=== PATIENT | male | born 1965 | race Caucasian/White ===

== ENCOUNTER 2025-05-24 21:05 | Emergency (ER) | payer BC, SELFPAY ==
[2025-05-24 21:11] VITALS: BP 134/101
[2025-05-24 21:41] LABS: Hematocrit 42.7 % (39.0-52.0); Hemoglobin 15.1 g/dL (13.0-18.0); Mean Corp Hgb Conc. 35.4 g/dL (33.0-37.0); Mean Corpuscular Volume 82.0 fL (80.0-94.0); Nucleated Red Blood Cells % 0 % (-); Platelet Count 178 10^3/uL (130-400); Red Cell Dist. Width 13.5 % (11.5-14.5)
[2025-05-24 22:08] LABS: ALT (SGPT) 20 U/L (0-50); AST (SGOT) 23 U/L (17-59); Albumin 4.6 g/dl (3.5-5.0); Alkaline Phosphatase 75 U/L (38-126); Blood Urea Nitrogen 15 mg/dl (9-20); Calcium 10.0 mg/dl (8.4-10.2); Carbon Dioxide 24 mmol/L (22-30); Glucose 88 mg/dl (70-99); Lipase 164 U/L (23-300); Total Protein 7.3 g/dl (6.3-8.2); eGFR > 60.00
[2025-05-24 22:16] LABS: Chloride 106 mmol/L (98-107); Potassium 4.2 mmol/L (3.5-5.1); Sodium 138 mmol/L (135-145)
[2025-05-24 22:26] LABS: Urine Character Clear (Clear)
--- NOTE | 2025-05-24 22:27 | ED.GENMED ---
History of Present Illness
General
Chief Complaint: Abdominal Pain
Source: patient
Exam Limitations: none
Time Seen by Provider: 05/24/25 21:31
Nursing documentation reviewed up to this point in time: agreed with
History of Present Illness
History of Present Illness:
60-year-old male with history as noted presents to the ER for evaluation of groin pain. Patient reports onset of symptoms this morning while at his computer and they have been constant since that time. He reports a sharp pain in the left inguinal
crease. Pain does not radiate. Worse with certain movements. No relieving factors noted. He denies any associated trauma or injury. He denies any abdominal or flank pain. He denies any nausea, vomiting. Denies any diarrhea or constipation.
He denies any dysuria, hematuria, change in urinary frequency. He denies any scrotal pain or swelling. Denies any radicular symptoms down the legs and denies any back pain. He denies any other acute complaints.
Past History
Past History
ED Past Medical History: Other (back pain)
ED Past Surgical History: Orthopedic (Right knee, and right elbow, and left ankle surgery and microdiscectomy of the back)
Social History
Tobacco: Non-smoker
Alcohol: None
Drug: None
Personal:
Living: with family
Employment: Employed
Family History
Family History: Other
Review of Systems
Review of Systems
All Other Systems: ROS reviewed and negative except as documented in HPI and ROS
Constitutional: Denies fever
Respiratory: Denies trouble breathing
Cardiac: Denies chest pain
ABD/GI: Denies abdominal pain, nausea, vomiting, diarrhea or constipated
: Denies dysuria, frequency, flank pain or bleeding
Musculoskeletal: Reports muscle pain (Groin pain); Denies neck pain or back pain
Neurological: Denies headache
Phy Exam
Physical Exam
Physical Exam:
General: Awake, alert, oriented x3; no acute distress
Head: Normocephalic, atraumatic
Eyes: Conjunctiva normal
Throat: Airway intact, handling secretions
Neck: Trachea midline
Lungs: Breathing comfortably with no distress
Heart: Regular rate
Abd: Soft, non distended, nontender to deep palpation with no palpable masses
: An area of concern in the left inguinal crease there are no skin changes, mild tenderness around the insertion of the hip adductor muscles but no localized swelling or bruising, no palpable hernia; he has no scrotal swelling and no testicular
tenderness with normal testicular lie
Neuro: Cranial nerves grossly intact, speech fluid, motor and sensory intact in the legs
Skin: No rash in area of concern
Extremities: No edema in extremities, equal pulses in all extremities�specifically strong and symmetric femoral pulses and DP pulses bilaterally
Scores
Heart Failure Risk
Heart Failure Risk Score: Not Applicable
Heart Score for Chest Pain Patients
STEMI patient?: Not applicable
Withdrawal Assessment of Alcohol
Withdrawal Assessment Completed?: Not applicable
Course
Orders/Labs/Results
Orders:
Orders
05/24/25 21:34
Complete Blood Count/With Diff Urgent
Comprehensive Metabolic Panel Urgent
Lipase Urgent
05/24/25 21:36
CT Abd/pel Without Iv Or Oral Urgent
Comment:
Reason For Exam: left sided abd pain
05/24/25 22:20
Urinalysis Reflex To Culture Urgent
Date Specimen was Collected: 05/24/25
Time Specimen was Collected: 22:17
Abnormal Lab Results
05/24/25
21:34
MPV 11.5 H fL
(7.4-10.4)
05/24/25 21:34
05/24/25 21:34
Vital Signs
Initial and Last Documented VS:
Initial Vital Signs
Temp Pulse Resp BP Pulse Ox
36.4 C 69 20 134/101 96
05/24/25 21:11 05/24/25 21:11 05/24/25 21:11 05/24/25 21:11 05/24/25 21:11
Last Documented Vital Signs
Temp Pulse Resp BP Pulse Ox
36.4 C 69 20 134/101 96
05/24/25 21:11 05/24/25 21:11 05/24/25 21:11 05/24/25 21:11 05/24/25 21:11
MDM/Problems Addressed
Differential Diagnosis Includes:
Groin strain, radiculopathy, diverticulitis, hernia, nephrolithiasis, UTI
MDM/Problems Addressed:
60-year-old male presents for evaluation of left groin pain since this morning. Hypertensive but otherwise normal vitals. Physical exam as above�notably no abdominal tenderness, no palpable hernia and no scrotal swelling or tenderness. Labs were
sent off including a CBC and a CMP which showed no clinically significant abnormalities. Patient was sent for a CT of the abdomen and pelvis which showed no nephrolithiasis. He does have bilateral inguinal hernias left greater than right�this is
one potential etiology to his pain. He also has degenerative changes L4-L5, radiculopathy consideration. Could also simply be groin strain although he denies any trauma. Stable for discharge recommended NSAIDs, follow-up with primary care
physician.
*Radiology
Radiology exam reviewed: radiology read reviewed
*Pulse Oximetry
SaO2: 96
Oxygen Mode of Delivery: Room air
Patient hypoxic: no (96%)
*Critical Care Note
Total Time (30-74mins, 75-104mins- exclusive of procedures): Not Applicable
Data Reviewed
Source: patient and spouse
ED Attending Note
-
Portions of this chart may have been created with voice recognition software.� Occasional wrong word or��sound alike� substitutions may have occurred due to the inherent limitations of voice recognition software.
Discharge Plan
Departure
Patient with high blood pressure during this ER visit?: Yes
Discharge Problem:
Groin pain, Inguinal hernia
Instructions: Groin hernias
Prescriptions:
No Action
No Current Medications
0
Referrals:
Samuel Chakraborty MD [[facility] Provider, [facility]] - Call in 1-3 days for appt
Activity Restrictions/Additional Instructions:
Thank you for visiting the Emergency Department at [facility].
1. Please schedule a follow up appointment as directed. Call first thing tomorrow morning to make an appointment.
2. If indicated, please take your medications as instructed and indicated on discharge paperwork.
3. If any of your symptoms do not improve, or persist, or become more severe within 6-12 hours, please return to the emergency department for further care.
4. Please return to the emergency department if you develop a headache, neck pain/stiffness, fever greater than 100.4F, chest pain, shortness of breath, persistent nausea, vomiting, slurred speech, difficulty walking, numbness/tingling, weakness,
signs of infection or any other symptoms that are worrisome to you.
Please call [phone] if you have any questions.
Interventions
Interventions:
*Risk Screen - Suicide Last Done: 05/24/25 21:11
*General Assessment Last Done: 05/24/25 21:11
*Neglect/Abuse Screening Last Done: 05/24/25 21:11
*ED COVID-19 Vaccine History Last Done: 05/24/25 21:11
TY-Vrqmmm-Bmklgcravs Assessment Last Done: 05/24/25 21:39
Discharge Date and Time
Print Language: [id number]
[2025-05-24 22:44] VITALS: BP 145/89
== END 2025-05-24 22:45 | disposition home or self-care (01) ==
LOC: EMR 21:05
PROVIDERS: EMERGENCY PHYSICIAN Emergency Medicine; FAMILY PHYSICIAN Family Medicine
DX: K40.20 Bilateral inguinal hernia, without obstruction or gangrene, not specified as recurrent (principal)
CPT/HCPCS: 99284; 74176; 80053; 81003; 83690; 85025